=== PATIENT | male | born 1935 | race Hispanic/Latino ===

== ENCOUNTER 2017-09-01 08:18 | Outpatient (CLI) | payer MEDICARE, OTHER ==
[2017-09-01] MEDS ORDERED: Iopamidol 370 76% 100 ML VIAL ONE (09:00)
[2017-09-01 09:17] LABS: Estimated GFR-MDRD - POC Greater than 90
--- NOTE | 2017-09-01 12:21 | CT ---
CT OF THE ABDOMEN AND PELVIS WITH CONTRAST: Date: 09/01/17 COMPARISON: None. HISTORY: Hematuria. Previous history of right upper quadrant abdominal pain. TECHNIQUE: Multiple contiguous axial images were obtained in a CT of the abdomen and pelvis with contrast. PO co ntrast was administered. Coronal reformats were performed. FINDINGS: There are gallstones in the gallbladder. The liver, kidneys, adrenal glands, spleen, and pancreas are unremarkable. No free air, free fluid, or stranding changes are seen in the abdomen or pelvis. Moderate stool is seen in the colon. The small bowel is unremarkable. The appendix is normal. No abdo dave or pelvic lymphadenopathy are seen. Atherosclerotic calcifications are seen in the aorta. Atelectasis is seen in both lung bases. Degenerative changes are seen in the spine. The abdominal wal l soft tissues are unremarkable. IMPRESSION: Cholelithiasis. POS: PRAVEEN
== END 2017-09-01 08:19 | disposition home or self-care (01) ==
LOC: SCSCT 08:18
PROVIDERS: ATTEND Specialist
DX: K80.20 Calculus of gallbladder without cholecystitis without obstruction (principal); R10.11 Right upper quadrant pain
CPT/HCPCS: 74177; 82565